=== PATIENT | female | born 1965 | race African-American/Black ===

== ENCOUNTER → 2017-02-27 | Outpatient (CLI) | payer OTHER ==
--- NOTE | ~2017-02-27 | EE ---
Unit #: [id number] #: [id number] Patient: ROXANA [place] [id number] [address] [address] [id number] O MR#: [id number] NAME: ROXANA AL : 1965 SEX: F STUDY DATE/TIME: 02/27/2017 UNIT: [facility] ROOM: STUDY DESCRIPTION: EEG Attending Physician: Chris Rutledge II., M.D. Referring Physician: Chris Rutledge II., M.D. Primary Care Physician: Usha Rock M.D. NEURODIAGNOSTICS REPORT EXAM EEG. TECH [facility]. REASON FOR STUDY Seizures. TECHNICAL INFORMATION This is a routine EEG performed using the standard international 10-20 system of electrode placement. Hyperventilation was performed. Photic stimulation was also performed. REPORT Throughout the entire study, the best background rhythm seen was approximately 10 Hz. This rhythm is seen in both posterior head regions symmetrically and does attenuate to eye opening and closure. Photic stimulation was performed, which did not elicit any epileptiform abnormalities. Hyperventilation was also performed, which failed to reproduce any abnormal buildup. Throughout the entire study there were no electrographic seizures recorded, nor were there any independent epileptiform abnormalities seen. There was no sleep recorded during the EEG. INTERPRETATION This is a normal awake EEG. A normal EEG does not rule out the possibility of a seizure disorder. Clinical correlation is advised. Dictated by... Chris Rutledge II., M.D. GWS/vernon TD: 03/02/2017 15:05 JOB #: [id number] Unit #: [id number] #: [id number] Patient: ROXANA AL NEURODIAGNOSTICS REPORT Page 1 of 1 X NEURODIAGNOSTICS REPORT
== END | disposition home or self-care (01) ==
LOC: CECH 12:30
DX: R55 Syncope and collapse (principal); I77.819 Aortic ectasia, unspecified site
CPT/HCPCS: 93306; 95816